=== PATIENT | female | born 1990 | race Caucasian/White ===

== ENCOUNTER 2017-12-04 06:08 | Inpatient (IN) | payer OTHER ==
[2017-12-04 07:27] LABS: RUPTURE FETAL MEMBRANES POSITIVE (NEGATIVE)
[2017-12-04 07:27] LABS: ADD UMIC YES; UR ASCORBIC ACID NEGATIVE (NEGATIVE); UR BILIRUBIN (Dip) NEGATIVE (NEGATIVE); UR BLOOD (Dip) NEGATIVE (NEGATIVE); UR CLARITY CLEAR (CLEAR); UR COLOR YELLOW (YELLOW); UR GLUCOSE (Dip) NEGATIVE (NEGATIVE); UR KETONES (Dip) NEGATIVE (NEGATIVE); UR LEUKOCYTE ESTERASE (Dip) NEGATIVE Leu/ul (NEGATIVE); UR MUCUS FEW /HPF (NONE SEEN); UR NITRITE (Dip) NEGATIVE (NEGATIVE); UR RBC 1 /HPF (0-5); UR SPECIFIC GRAVITY (Dip) 1.023 (1.003-1.030); UR SQUAMOUS EPITHELIAL CELL FEW /HPF (FEW); UR TOTAL PROTEIN (Dip) 1+ mg/dl (NEGATIVE); UR UROBILINOGEN (Dip) NEGATIVE (NEGATIVE); UR WBC 1 /HPF (0-5)
[2017-12-04] MEDS ORDERED: LACTATED RINGER'S 1,000 ML IV (08:47)
[2017-12-04] MEDS ORDERED: OXYTOCIN 30 UNITS/LR 500 ML IV (09:00)
[2017-12-04] MEDS ORDERED: CARBOPROST 250 MCG INJ IM (09:00)
[2017-12-04] MEDS: AMPICILLIN 2 GM/NS (PMX) 100 ML IV (09:11)
[2017-12-04] MEDS: LACTATED RINGER'S 1,000 ML IV ×2 (09:11→18:44)
[2017-12-04 10:02] LABS: ADD MAN DIFF? NO
[2017-12-04] MEDS: MISOPROSTOL 25 MCG CAPSULE PO ×4 (10:12→23:33)
[2017-12-04 10:25] LABS: WHITE BLOOD COUNT 9.2 10^3/ul (4.8-10.8)
[2017-12-04 10:25] LABS: BASOPHILS % 0.2 % (0.0-2.0); EOSINOPHILS % 0.4 % (0.0-7.0); HEMATOCRIT 33.8 % (37.0-47.0); HEMOGLOBIN 10.7 g/dl (12.0-16.0); LYMPHOCYTES # 2.7 10^3/ul (0.8-2.9); MEAN CORPUSCULAR HEMOGLOBIN 23.3 pg (29.0-33.0); MEAN CORPUSCULAR HGB CONC 31.7 g/dl (32.0-37.0); MEAN CORPUSCULAR VOLUME 73.6 fl (82.0-101.0); MEAN PLATELET VOLUME 11.3 fl (7.4-10.4); MONOCYTE # 0.5 10^3/ul (0.3-0.9); NEUTROPHILS % 65.1 % (39.0-77.0); PLATELET COUNT 235 10^3/UL (140-415); RED BLOOD COUNT 4.59 10^6/ul (4.20-5.40); RED CELL DISTRIBUTION WIDTH 18.4 % (11.5-14.5)
[2017-12-04 10:44] LABS: INR 0.88; PARTIAL THROMBOPLASTIN TIME 31.5 Sec (25.0-35.0); PT RATIO 0.9
[2017-12-04 11:39] LABS: HEPATITIS B SURFACE ANTIGEN NEGATIVE (NEGATIVE)
[2017-12-04] MEDS: AMPICILLIN 1 GM/NS (PMX) 50 ML IV ×3 (12:59→21:18)
[2017-12-04] MEDS: BUTORPHANOL 2 MG INJ IV (21:48)
[2017-12-04 22:52] LABS: RAPID PLASMA REAGIN NONREACTIVE (NR)
[2017-12-05] MEDS: MISOPROSTOL 25 MCG CAPSULE PO ×4 (00:59→09:00)
[2017-12-05] MEDS: AMPICILLIN 1 GM/NS (PMX) 50 ML IV ×4 (00:59→13:06)
[2017-12-05] MEDS: BUTORPHANOL 2 MG INJ IV (01:28)
[2017-12-05] MEDS ORDERED: FENTAnyl 2MCG/ML-ROPIV 0.2% 100 ML (03:53)
[2017-12-05] MEDS: LACTATED RINGER'S 1,000 ML IV ×4 (04:48→11:59)
[2017-12-05] MEDS: FENTAnyl 2MCG/ML-ROPIV 0.2% 100 ML BAG EPI (12:49)
[2017-12-05] MEDS ORDERED: EPHEDrine SULFATE 50 MG/5 ML SYG IV (13:00)
[2017-12-05] MEDS ORDERED: ONDANSETRON 4 MG INJ IV (13:00)
[2017-12-05] MEDS ORDERED: DIPHENHYDRAMINE 50 MG INJ IV (13:00)
[2017-12-05] MEDS ORDERED: NALOXONE (0.4 MG/ML) INJ IV (13:00)
[2017-12-05] MEDS: MISOPROSTOL 200 MCG TAB PR (17:03)
[2017-12-05] MEDS: LIDOCAINE 1% (MPF) 30 ML INJ INJ (17:06)
[2017-12-05] MEDS: METHYLERGONOVINE 0.2 MG INJ IM (17:07)
[2017-12-05] MEDS: OXYTOCIN 30 UNITS/LR 500 ML IV ×3 (17:17→20:34)
[2017-12-05 19:52] LABS: ADD MAN DIFF? NO
[2017-12-05 19:53] LABS: WHITE BLOOD COUNT 17.3 10^3/ul (4.8-10.8)
[2017-12-05 19:53] LABS: BASOPHILS % 0.2 % (0.0-2.0); HEMATOCRIT 26.9 % (37.0-47.0); HEMOGLOBIN 8.6 g/dl (12.0-16.0); LYMPHOCYTES # 1.7 10^3/ul (0.8-2.9); LYMPHOCYTES % 9.6 % (15.0-51.0); MEAN CORPUSCULAR HEMOGLOBIN 23.7 pg (29.0-33.0); MEAN CORPUSCULAR VOLUME 74.1 fl (82.0-101.0); MEAN PLATELET VOLUME 10.3 fl (7.4-10.4); MONOCYTE # 1.3 10^3/ul (0.3-0.9); MONOCYTES % 7.3 % (0.0-11.0); NEUTROPHIL # 14.3 10^3/ul (1.6-7.5); NEUTROPHILS % 82.4 % (39.0-77.0); PLATELET COUNT 185 10^3/UL (140-415); RED BLOOD COUNT 3.63 10^6/ul (4.20-5.40); RED CELL DISTRIBUTION WIDTH 18.4 % (11.5-14.5)
[2017-12-05] MEDS: IBUPROFEN 600 MG TAB PO (20:31)
[2017-12-05] MEDS ORDERED: MISOPROSTOL 200 MCG TAB PR (22:30)
[2017-12-05] MEDS ORDERED: DIBUCAINE 1% 30 GM OINT PR (22:30)
[2017-12-05] MEDS ORDERED: OXYTOCIN 30 UNITS/LR 500 ML IV (22:30)
[2017-12-05] MEDS ORDERED: METHYLERGONOVINE 0.2 MG INJ IM (22:30)
[2017-12-05] MEDS ORDERED: ACETAMINOPHEN 325 MG TAB PO (22:30)
[2017-12-05] MEDS ORDERED: CARBOPROST 250 MCG INJ IM (22:30)
[2017-12-05] MEDS: FERROUS SULFATE (EC) 325 MG TAB PO (23:24)
[2017-12-05] MEDS: WITCH HAZEL/GLYCERIN PAD PR (23:25)
[2017-12-05] MEDS: LANOLIN 7 GM TUBE TOP (23:25)
[2017-12-05] MEDS: BENZOCAINE 20% 56 ML SPRAY TOP (23:25)
[2017-12-06] MEDS: LACTATED RINGER'S 1,000 ML IV* ×4 (00:28→22:06)
[2017-12-06] MEDS: IBUPROFEN 600 MG TAB PO ×4 (05:30→17:27)
[2017-12-06 08:18] LABS: ADD MAN DIFF? NO
[2017-12-06 08:20] LABS: BASOPHILS % 0.2 % (0.0-2.0); EOSINOPHILS # 0.1 10^3/ul (0.0-0.5); EOSINOPHILS % 0.3 % (0.0-7.0); HEMATOCRIT 23.6 % (37.0-47.0); HEMOGLOBIN 7.6 g/dl (12.0-16.0); LYMPHOCYTES % 22.4 % (15.0-51.0); MEAN CORPUSCULAR HGB CONC 32.2 g/dl (32.0-37.0); MEAN CORPUSCULAR VOLUME 74.4 fl (82.0-101.0); MONOCYTE # 1.3 10^3/ul (0.3-0.9); MONOCYTES % 7.4 % (0.0-11.0); NEUTROPHIL # 12.4 10^3/ul (1.6-7.5); NEUTROPHILS % 68.9 % (39.0-77.0); PLATELET COUNT 200 10^3/UL (140-415); RED BLOOD COUNT 3.17 10^6/ul (4.20-5.40); RED CELL DISTRIBUTION WIDTH 18.6 % (11.5-14.5)
[2017-12-06 08:20] LABS: WHITE BLOOD COUNT 17.9 10^3/ul (4.8-10.8)
[2017-12-06] MEDS: FERROUS SULFATE (EC) 325 MG TAB PO ×3 (08:30→21:33)
[2017-12-06] MEDS: HYDROCODONE/APAP (5/325) TAB PO (08:30)
[2017-12-06] MEDS: SENNA/DOCUSATE NA (8.6MG/50MG) TAB PO ×2 (08:30→21:32)
[2017-12-07] MEDS: IBUPROFEN 600 MG TAB PO ×5 (00:14→23:52)
[2017-12-07] MEDS: LACTATED RINGER'S 1,000 ML IV* ×2 (06:06→14:06)
[2017-12-07 08:27] LABS: ADD MAN DIFF? NO
[2017-12-07 08:35] LABS: WHITE BLOOD COUNT 11.1 10^3/ul (4.8-10.8)
[2017-12-07 08:35] LABS: ABNORMAL IP MESSAGE 1; BASOPHILS % 0.1 % (0.0-2.0); EOSINOPHILS # 0.2 10^3/ul (0.0-0.5); EOSINOPHILS % 1.5 % (0.0-7.0); HEMATOCRIT 18.8 % (37.0-47.0); LYMPHOCYTES # 2.3 10^3/ul (0.8-2.9); LYMPHOCYTES % 20.8 % (15.0-51.0); MEAN CORPUSCULAR HEMOGLOBIN 23.9 pg (29.0-33.0); MEAN CORPUSCULAR HGB CONC 31.9 g/dl (32.0-37.0); MEAN CORPUSCULAR VOLUME 74.9 fl (82.0-101.0); MEAN PLATELET VOLUME 10.9 fl (7.4-10.4); MONOCYTE # 0.6 10^3/ul (0.3-0.9); MONOCYTES % 5.4 % (0.0-11.0); NEUTROPHIL # 7.9 10^3/ul (1.6-7.5); NEUTROPHILS % 71.4 % (39.0-77.0); PLATELET COUNT 182 10^3/UL (140-415); RED BLOOD COUNT 2.51 10^6/ul (4.20-5.40); RED CELL DISTRIBUTION WIDTH 18.7 % (11.5-14.5)
[2017-12-07 08:42] LABS: POSITIVE DIFF @See below
[2017-12-07] MEDS: FERROUS SULFATE (EC) 325 MG TAB PO ×3 (08:46→21:13)
[2017-12-07] MEDS: SENNA/DOCUSATE NA (8.6MG/50MG) TAB PO ×2 (08:47→21:13)
[2017-12-07] MEDS: DIPHTH/TET/ACEL PERTUSS (ADULT) 0.5 ML VIAL IM* (09:00)
[2017-12-07 10:16] LABS: ANISOCYTOSIS 3+ (0-0); BAND NEUTROPHILS #M 0.3 10^3/ul (0.0-0.6); BAND NEUTROPHILS % (M) 3 % (0-4); EOSINOPHILS % (M) 4 % (0-7); GIANT THROMBO% (M) 1 % (0-0); LYMPHOCYTES #M 2.3 10^3/ul (0.8-2.9); LYMPHOCYTES % (M) 21 % (15-51); MICROCYTOSIS 3+ (0-0); MONOCYTE #M 0.3 10^3/ul (0.3-0.9); MONOCYTES % (M) 3 % (0-11); MYELOCYTES #M 0.1 10^3/ul (0.0-0.0); MYELOCYTES % (M) 1 % (0-0); PLATELET ESTIMATE NORMAL; POLYCHROMASIA 3+ (0-0); SEG NEUT #M 7.6 10^3/ul (1.6-7.5); SEGMENTED NEUTROPHILS (M) % 68 % (39-77); SMUDGE%M 3 % (0-0)
[2017-12-07] MEDS: HYDROCODONE/APAP (5/325) TAB PO (16:13)
[2017-12-07] MEDS: WITCH HAZEL/GLYCERIN PAD PR (21:52)
[2017-12-07 22:02] LABS: IMMEDIATE SPIN CROSSMATCH 1 2
[2017-12-08] MEDS: IBUPROFEN 600 MG TAB PO ×2 (05:30→12:00)
[2017-12-08 08:58] LABS: ADD MAN DIFF? NO
[2017-12-08] MEDS: SENNA/DOCUSATE NA (8.6MG/50MG) TAB PO (09:00)
[2017-12-08 09:03] LABS: BASOPHILS % 0.2 % (0.0-2.0); EOSINOPHILS # 0.2 10^3/ul (0.0-0.5); HEMATOCRIT 24.8 % (37.0-47.0); LYMPHOCYTES # 2.8 10^3/ul (0.8-2.9); LYMPHOCYTES % 24.5 % (15.0-51.0); MEAN CORPUSCULAR HEMOGLOBIN 24.8 pg (29.0-33.0); MEAN CORPUSCULAR HGB CONC 32.3 g/dl (32.0-37.0); MEAN CORPUSCULAR VOLUME 76.8 fl (82.0-101.0); MEAN PLATELET VOLUME 10.4 fl (7.4-10.4); MONOCYTE # 0.6 10^3/ul (0.3-0.9); MONOCYTES % 5.6 % (0.0-11.0); NEUTROPHIL # 7.5 10^3/ul (1.6-7.5); NEUTROPHILS % 66.8 % (39.0-77.0); PLATELET COUNT 214 10^3/UL (140-415); RED BLOOD COUNT 3.23 10^6/ul (4.20-5.40); RED CELL DISTRIBUTION WIDTH 18.6 % (11.5-14.5)
[2017-12-08 09:03] LABS: WHITE BLOOD COUNT 11.3 10^3/ul (4.8-10.8)
[2017-12-08] MEDS: FERROUS SULFATE (EC) 325 MG TAB PO ×2 (09:17→13:26)
[2017-12-08] MEDS: HYDROCODONE/APAP (5/325) TAB PO (13:27)
== END 2017-12-08 16:47 | disposition home or self-care (01) | DRG 774 ==
LOC: OBT 06:08 → PP1 12-05 21:26 → L-D 06:12 → OBT 08:34 → L-D 08:25
PROC: 4A1HXCZ Monitoring of Products of Conception, Cardiac Rate, External Approach (ICD-10-PCS; 2017-12-04)
PROC: 10E0XZZ Delivery of Products of Conception, External Approach (ICD-10-PCS; principal; 2017-12-05)
PROC: 0KQM0ZZ Repair Perineum Muscle, Open Approach (ICD-10-PCS; 2017-12-05)
PROC: 30233N1 Transfusion of Nonautologous Red Blood Cells into Peripheral Vein, Percutaneous Approach (ICD-10-PCS; 2017-12-07)
DX: O99.824 Streptococcus B carrier state complicating childbirth (principal); O72.1 Other immediate postpartum hemorrhage; D62 Acute posthemorrhagic anemia; O69.81X0 Labor and delivery complicated by cord around neck, without compression, not applicable or unspecified; Z37.0 Single live birth; O70.1 Second degree perineal laceration during delivery; Z3A.40 40 weeks gestation of pregnancy; O90.81 Anemia of the puerperium
CPT/HCPCS: 36430; 62319; 76815; 76818; 81001; 84112; 85025; 85610; 85730; 86592; 86850; 86900; 86901; 86920; 87340; 90715; 99464